=== PATIENT | male | born 1960 | race African-American/Black ===

== ENCOUNTER 2016-12-16 14:14 | Emergency (ER) | payer MEDICAID, OTHER ==
[~2016-12-16] VITALS: Ht 182.9 cm; Wt 95.3 kg
[2016-12-16] MEDS ORDERED: ABILIFY20 MG ORAL (14:27)
[2016-12-16] MEDS ORDERED: SEROQUEL100 MG ORAL (14:27)
[2016-12-16 14:55] LABS: BASOPHILS % (AUTO) 1.1 % (0.0-2.0); EOSINOPHILS % (AUTO) 0.9 % (0.0-3.0); LYMPHOCYTES % (AUTO) 36.3 % (20.0-45.0); MEAN CORPUSCULAR HEMOGLOBIN 28.8 PG (27.0-31.0); MEAN CORPUSCULAR HGB CONC 30.8 G/DL (32.0-36.0); MEAN CORPUSCULAR VOLUME 94 FL (80-99); MEAN PLATELET VOLUME 8.6 FL (6.5-10.1); MONOCYTES % (AUTO) 4.9 % (1.0-10.0); NEUTROPHILS % (AUTO) 56.8 % (45.0-75.0); PLATELET COUNT 256 K/UL (150-450); RED BLOOD COUNT 6.41 M/UL (4.70-6.10); RED CELL DISTRIBUTION WIDTH 14.2 % (11.6-14.8); WHITE BLOOD COUNT 6.7 K/UL (4.8-10.8)
--- NOTE | 2016-12-16 15:04 | Emergency Room Report ---
History of Present Illness General Chief Complaint: Dyspnea/Respdistress Source: Patient Present Illness HPI Patient is a 56-year-old male who presented after increased difficulty breathing and dyspnea on exertion. Patient reported having increased orthopnea over the past few weeks. Patient stated that he had one to barbecue and subsequently developed leg swelling which had become gradually worse. Patient reported having no current chest pain. He stated that he had increased dyspnea with exertion and was only able to walk shortness is without becoming short of breath. Allergies: Coded Allergies: No Known Allergies (Unverified , 12/16/16) Patient History Reviewed Nursing Documentation: PMH: Agreed, PSxH: Agreed Nursing Documentation-PMH Past Medical History: No History, Except For Hx Cardiac Problems: No Hx Hypertension: Yes Hx Pacemaker: No Hx Asthma: No Hx COPD: No Hx Diabetes: No Hx Cancer: No Hx Gastrointestinal Problems: No Hx Dialysis: No History Of Psychiatric Problem: Yes - Depression Hx Neurological Problems: No Hx Cerebrovascular Accident: No Hx Seizures: No Review of Systems All Other Systems: negative except mentioned in HPI Physical Exam Vital Signs Date Time Temp Pulse Resp B/P Pulse Ox O2 Delivery O2 Flow Rate FiO2 12/16/16 14:22 97.2 81 16 114/81 98 Room Air Sp02 EP Interpretation: reviewed, normal General Appearance: normal inspection, well appearing, no apparent distress, alert, GCS 15 Head: atraumatic ENT: normal ENT inspection, hearing grossly normal, normal voice Neck: normal inspection, full range of motion, supple, no bony tend Respiratory: normal inspection, lungs clear, normal breath sounds, no respiratory distress, no retraction, no wheezing Cardiovascular #1: regular rate, rhythm, no edema Gastrointestinal: normal inspection, normal bowel sounds, non tender, soft, no guarding, no hernia Genitourinary: no CVA tenderness Musculoskeletal: normal inspection, back normal, normal range of motion, swelling - bilateral lower extremity symmetric Neurologic: normal inspection, alert, oriented x3, responsive, news technical director III-XII nml as tested, speech normal Psychiatric: normal inspection, judgement/insight normal, mood/affect normal Skin: normal inspection, normal color, no rash Medical Decision Making Diagnostic Impression: Primary Impression: Congestive heart failure (CHF) Additional Impression: Acute renal injury ER Course Patient presented for shortness of breath.Differential included but was not limited to anemia, pneumonia, pneumothorax, myocardial infarction, pericardial effusion, congestive heart failure, acidosis. Because of complexity of patient' s case laboratory testing and imaging studies were ordered. EKG interpreted by me showed normal sinus rhythm with a rate of 83 with prolonged QT and lateral T-wave inversion. Patient noted to have a normal white blood count. Patient was noted to have also elevated hemoglobin. Patient started on IV Lasix for symptoms consistent with congestive heart failure. A chest x-ray one view interpreted by me showed cardiomegaly without evident infiltrate there is mild vascular congestion noted.The patient was given aspirin as well as Lasix in the emergency department. Labs Test 12/16/16 14:41 White Blood Count 6.7 K/UL (4.8-10.8) Red Blood Count 6.41 M/UL (4.70-6.10) Hemoglobin 18.5 G/DL (14.2-18.0) Hematocrit 60.1 % (42.0-52.0) Mean Corpuscular Volume 94 FL (80-99) Mean Corpuscular Hemoglobin 28.8 PG (27.0-31.0) Mean Corpuscular Hemoglobin Concent 30.8 G/DL (32.0-36.0) Red Cell Distribution Width 14.2 % (11.6-14.8) Platelet Count 256 K/UL (150-450) Mean Platelet Volume 8.6 FL (6.5-10.1) Neutrophils (%) (Auto) 56.8 % (45.0-75.0) Lymphocytes (%) (Auto) 36.3 % (20.0-45.0) Monocytes (%) (Auto) 4.9 % (1.0-10.0) Eosinophils (%) (Auto) 0.9 % (0.0-3.0) Basophils (%) (Auto) 1.1 % (0.0-2.0) Troponin I < 0.30 ng/mL (<=0.30) Chest X-Ray Diagnostic Results EP Interpretation: Yes Findings: no consolidation, no effusion, no pneumothorax, no acute cardiopulmonary disease Number of Views: 1 Last Vital Signs Date Time Temp Pulse Resp B/P Pulse Ox O2 Delivery O2 Flow Rate FiO2 12/16/16 14:22 97.2 81 16 114/81 98 Room Air Status: unchanged Disposition: ADMITTED INPATIENT Condition: Serious Referrals: NOT CHOSEN IPA/,REFERRING (PCP) Ryan Lim December 16, 2016 15:04
[2016-12-16 15:06] VITALS: BP 118/94
[2016-12-16 15:13] LABS: TROPONIN I < 0.30 ng/mL (<=0.30)
[2016-12-16] MEDS ORDERED: Aspirin Baby 81mg ORAL ONE (15:15)
[2016-12-16 15:59] LABS: ALBUMIN/GLOBULIN RATIO 1.2 (1.0-2.7); CALCIUM 9.5 mg/dL (8.6-10.2); CREATININE 3.2 mg/dL (0.7-1.2); GLOMERULAR FILTRATION RATE 24.5 mL/min (>60); POTASSIUM 4.9 mEQ/L (3.4-4.9); TOTAL PROTEIN 6.5 g/dL (6.6-8.7)
[2016-12-16 16:10] LABS: CKMB 4.1 ng/mL (< 6.7)
[2016-12-16 17:16] VITALS: BP 121/92
[2016-12-16 18:36] VITALS: BP 111/69
[2016-12-16 20:11] VITALS: BP 118/74
[2016-12-16 21:06] VITALS: BP 119/73
--- NOTE | 2016-12-17 09:54 | Diagnostic Imaging Report ---
Indication: Shortness of breath Technique: Single portable AP view of the chest. Findings: Comparison: None. Tip of left costophrenic angle excluded from image. Cardiac silhouette enlarged. Aortic arch mildly calcified and elongated. The bones and extra pulmonary soft tissues, remainder of the cardiomediastinal silhouette, pulmonary vasculature and parenchyma, and pleural surfaces are otherwise unremarkable. IMPRESSION: No evidence of acute cardio pulmonary disease, limited as described Cardio megaly Aortosclerosis and probable chronic hypertensive change.
--- NOTE | 2016-12-17 19:00 | Cardiology Report ---
APPROVED REPORT EKG Measurement Heart [id number] Sinus rhythm with premature supraventricular complexes Septal infarct, age undetermined T wave abnormality, consider lateral ischemia Prolonged QT Abnormal ECG
== END 2016-12-16 21:06 | disposition short-term general hospital (02) ==
LOC: EMR 14:34
DX: I50.9 Heart failure, unspecified (principal); N17.9 Acute kidney failure, unspecified; I10 Essential (primary) hypertension; Z86.59 Personal history of other mental and behavioral disorders
CPT/HCPCS: 36415; 71010; 80053; 82550; 82553; 83880; 84484; 85025; 93005; 96374; 99285; J1940